=== PATIENT | male | born 1980 | race Caucasian/White ===

== ENCOUNTER → 2022-05-06 | Outpatient (CLI) | payer MEDICAID ==
[~2022-05-06] MED LIST: BACTRIM DS TAB1 EACH PO; IBUPROFEN600 MG PO; NAPROSYN500 MG PO; PERCOCET 5/325 T1 EA PO; ZANTAC 7575 MG PO; ZYRTEC10 M3 PO
== END ==
LOC: KOH-I 14:02
DX: R06.00 Dyspnea, unspecified (principal); S29.9XXA Unspecified injury of thorax, initial encounter
CPT/HCPCS: 71045; 71101